=== PATIENT | male | born 2000 | race Caucasian/White ===

== ENCOUNTER 2018-12-15 10:12 | Emergency (ER) | payer SELFPAY ==
[~2018-12-15] VITALS: Ht 170.2 cm; Wt 59.0 kg
[2018-12-15 10:23] VITALS: BP 121/57
--- NOTE | 2018-12-15 10:29 | NUR ---
PATIENT AMBULATED TO BED 11.
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
[2018-12-15 11:53] VITALS: BP 120/61
== END 2018-12-15 11:53 | disposition home or self-care (01) ==
LOC: MED 10:12
DX: S20.212A Contusion of left front wall of thorax, initial encounter (principal); S49.92XA Unspecified injury of left shoulder and upper arm, initial encounter; V89.2XXA Person injured in unspecified motor-vehicle accident, traffic, initial encounter; Y93.89 Activity, other specified; Y92.410 Unspecified street and highway as the place of occurrence of the external cause; Y99.8 Other external cause status
CPT/HCPCS: 71045; 73030; 99283